=== PATIENT | female | born 1990 | race Caucasian/White ===

== ENCOUNTER 2022-12-19 14:35 | Outpatient (CLI) | payer BC, SELFPAY ==
[2022-12-19 15:27] LABS: SARS-CoV-2 RNA PCR Positive (Negative)
== END 2022-12-19 14:36 | disposition home or self-care (01) ==
PROVIDERS: PCP Family Medicine; Visit Provider Family Medicine
DX: U07.1 COVID-19 (principal); J06.9 Acute upper respiratory infection, unspecified
CPT/HCPCS: U0003; U0005